=== PATIENT | female | born 1985 | race Caucasian/White ===

== ENCOUNTER → 2016-12-29 | Outpatient (REF) | payer BC ==
[~2016-12-29] MED LIST: ACET50TA PO; ASPI325T28 PO; COLA100C PO; IBUP-1114 PO; KEFL500C7 PO; PRENTAB55 PO; TYLE325T5 PO; VENL75TA2 PO
== END ==
LOC: M LAB REF 15:57
PROVIDERS: ATTEND Physician Assistant Medical
DX: N30.01 Acute cystitis with hematuria (principal)

== ENCOUNTER → 2017-06-11 | Outpatient (REF) | payer BC ==
[~2017-06-11] MED LIST changes: -COLA100C PO; +COLA100C5 PO; +KEFL500C17 PO; -KEFL500C7 PO
== END ==
LOC: M LAB REF 13:21
PROVIDERS: ATTEND Advanced Practice Midwife
DX: Z12.4 Encounter for screening for malignant neoplasm of cervix (principal); R87.612 Low grade squamous intraepithelial lesion on cytologic smear of cervix (LGSIL)

== ENCOUNTER → 2017-07-10 | Outpatient (REF) | payer BC | LOC: M LAB REF 17:27 | PROVIDERS: ATTEND Specialist | DX: N87.0 Mild cervical dysplasia (principal) ==

== ENCOUNTER → 2017-12-05 | Outpatient (REF) | payer BC ==
[2017-12-05 15:10] LABS: INFLUENZA A AMPLIFICATION NEGATIVE (NEGATIVE); INFLUENZA B AMPLIFICATION NEGATIVE (NEGATIVE)
== END ==
LOC: M LAB REF 13:50
DX: R05 Cough (principal)
CPT/HCPCS: 87502

== ENCOUNTER → 2018-01-28 | Outpatient (REF) | payer BC ==
[2018-01-31 14:19] LABS: HPV HYBRID CAPTURE II Negative (Negative)
== END ==
LOC: M LAB REF 13:24
DX: R87.612 Low grade squamous intraepithelial lesion on cytologic smear of cervix (LGSIL) (principal); Z11.51 Encounter for screening for human papillomavirus (HPV)
CPT/HCPCS: G0123

== ENCOUNTER → 2018-08-17 | Outpatient (CLI) | payer BC | LOC: M RAD 10:52 | DX: N64.4 Mastodynia (principal); N60.01 Solitary cyst of right breast | CPT/HCPCS: 76642 ==

== ENCOUNTER → 2018-08-25 | Outpatient (REF) | payer BC ==
[2018-08-25 12:39] LABS: BASO % 0.7 % (0.0-1.0); EOS # 0.1 10^3/uL (0.0-0.50); EOS % 2.9 % (0.0-3.0); HEMATOCRIT 39.1 % (36.0-47.0); HEMOGLOBIN 13.3 g/dl (12.0-15.5); IMMATURE GRANULOCYTE % 0.4 % (0-3.0); LYMPH # 1.4 10^3/uL (1.5-4.5); LYMPH % 30.3 % (24.0-44.0); MEAN CORPUSCULAR HEMOGLOBIN 30.7 pg (27.0-33.0); MEAN CORPUSCULAR VOLUME 90.3 fl (80.0-96.0); MONO # 0.3 10^3/uL (0.0-0.8); MONO % 7.4 % (0.0-5.0); NEUTROPHILS # 2.6 10^3/uL (1.8-7.7); NEUTROPHILS % 58.3 % (36.0-66.0); PLATELET COUNT, AUTOMATED 229 10^3/uL (150-450); RED BLOOD COUNT 4.33 10^6/uL (4.00-5.40); RED CELL DISTRIBUTION WIDTH 11.9 % (11.5-14.5); WHITE BLOOD COUNT 4.5 10^3/uL (4.0-10.0)
[2018-08-25 22:49] LABS: GOLD SPEC TUBE RECIEVED
[2018-08-26 00:08] LABS: ALBUMIN 4.2 GM/DL (3.2-5.2); ALBUMIN/GLOBULIN RATIO 1.35 (1.00-1.93); ALKALINE PHOSPHATASE 59 U/L (45-117); ALT/SGPT 24 U/L (12-78); ANION GAP 6 MEQ/L (8-16); AST/SGOT 15 U/L (7-37); BILIRUBIN,TOTAL 0.8 MG/DL (0.2-1.0); BLOOD UREA NITROGEN 15 MG/DL (7-18); CARBON DIOXIDE LEVEL 29 MEQ/L (21-32); CHLORIDE LEVEL 107 MEQ/L (98-107); CREATININE FOR GFR 0.67 MG/DL (0.55-1.30); FREE T4 1.09 NG/DL (0.76-1.46); GLOMERULAR FILTRATION RATE > 60.0 (>60); GLUCOSE, FASTING 93 MG/DL (70-100); POTASSIUM SERUM 4.7 MEQ/L (3.5-5.1); SODIUM LEVEL 142 MEQ/L (136-145); TOTAL 25(OH) VITAMIN D 30.6 NG/ML (30.0-100.0); TOTAL PROTEIN 7.3 GM/DL (6.4-8.2)
== END ==
LOC: M LABDRWAD 12:20
DX: Z13.29 Encounter for screening for other suspected endocrine disorder (principal); Z13.0 Encounter for screening for diseases of the blood and blood-forming organs and certain disorders involving the immune mechanism
CPT/HCPCS: 84443

== ENCOUNTER → 2019-05-19 | Outpatient (CLI) | payer BC ==
[~2019-05-19] MED LIST changes: -ACET50TA PO; +ASPI-222 PO; -ASPI325T28 PO; +MAPA500T2 PO
--- NOTE | 2019-05-19 18:41 | REP ---
ULTRASOUND RIGHT BREAST: Real-time sonographic evaluation of the right breast was performed. Comparison made with prior study of 08/17/2018. Once again at the 10 o'clock position is an oval hypoechoic nodule. It measures 1.3 x 1.0 x 1.0 cm. Prior measurements were 1.7 x 0.7 x 1.1 cm and therefore the nodule may have slightly decreased in size. 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 IMPRESSION: ACR 3 probably benign. Solid nodule again seen at 10 o'clock may have mildly decreased in size. 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 Recommend followup ultrasound in 6 months. Electronically Signed by De Flores MD 05/22/2019 06:34 P
== END ==
LOC: M RAD 11:09
PROVIDERS: ATTEND Surgery
DX: N63.13 Unspecified lump in the right breast, lower outer quadrant (principal)

== ENCOUNTER → 2019-09-07 | Outpatient (REF) | payer BC ==
[~2019-09-07] MED LIST changes: -ASPI-222 PO; +ASPI-527 PO
== END ==
LOC: M LAB REF 13:53
PROVIDERS: ATTEND Advanced Practice Midwife
DX: Z12.4 Encounter for screening for malignant neoplasm of cervix (principal)
CPT/HCPCS: 87624; G0123

== ENCOUNTER → 2019-09-08 | Outpatient (REF) | payer BC ==
[2019-09-08 13:30] LABS: BASO # 0.1 10^3/uL (0.0-0.2); BASO % 1.1 % (0.0-1.0); EOS # 0.1 10^3/uL (0.0-0.5); EOS % 2.9 % (0.0-3.0); HEMATOCRIT 42.3 % (36.0-47.0); HEMOGLOBIN 13.9 g/dl (12.0-15.5); LYMPH # 1.4 10^3/uL (1.5-5.0); LYMPH % 30.7 % (24.0-44.0); MEAN CORPUSCULAR HEMOGLOBIN 30.7 pg (27.0-33.0); MEAN CORPUSCULAR HGB CONC 32.9 g/dl (32.0-36.5); MEAN CORPUSCULAR VOLUME 93.4 fl (80.0-96.0); MONO # 0.5 10^3/uL (0.0-0.8); NEUTROPHILS # 2.5 10^3/uL (1.5-8.5); NEUTROPHILS % 54.6 % (36.0-66.0); PLATELET COUNT, AUTOMATED 216 10^3/uL (150-450); RED BLOOD COUNT 4.53 10^6/uL (4.00-5.40); WHITE BLOOD COUNT 4.5 10^3/uL (4.0-10.0)
[2019-09-08 14:02] LABS: ALBUMIN 4.1 GM/DL (3.2-5.2); ALT/SGPT 26 U/L (12-78); BILIRUBIN,TOTAL 0.6 MG/DL (0.2-1.0); BLOOD UREA NITROGEN 14 MG/DL (7-18); CALCIUM LEVEL 9.1 MG/DL (8.5-10.1); CARBON DIOXIDE LEVEL 26 MEQ/L (21-32); CHLORIDE LEVEL 107 MEQ/L (98-107); CREATININE FOR GFR 0.67 MG/DL (0.55-1.30); FERRITIN 64 NG/ML (8-252); FREE T4 1.09 NG/DL (0.76-1.46); GLOMERULAR FILTRATION RATE > 60.0 (>60); GLUCOSE, FASTING 89 MG/DL (70-100); IRON (FE) 108 UG/DL (50-170); PERCENT SATURATION 42.7 % (13.2-45.0); POTASSIUM SERUM 4.7 MEQ/L (3.5-5.1); SODIUM LEVEL 138 MEQ/L (136-145); TOTAL 25(OH) VITAMIN D 25.7 NG/ML (30.0-100.0); TOTAL IRON BINDING CAPACITY 253 UG/DL (250-450); TOTAL PROTEIN 7.5 GM/DL (6.4-8.2); VITAMIN B12 LEVEL 399 PG/ML (247-911)
== END ==
LOC: M LABDRWAD 12:44
PROVIDERS: ATTEND Family Medicine
DX: R53.83 Other fatigue (principal); Z13.29 Encounter for screening for other suspected endocrine disorder; Z13.0 Encounter for screening for diseases of the blood and blood-forming organs and certain disorders involving the immune mechanism

== ENCOUNTER → 2019-11-30 | Outpatient (CLI) | payer BC ==
--- NOTE | 2019-11-30 14:37 | REP ---
ULTRASOUND RIGHT BREAST: Real-time sonographic evaluation of the right breast performed. Comparison is made with a prior study of 05/19/2019 and 08/17/2018. There is a palpable lump in the right breast in the region of 10-o'clock position. At the site of the palpable lump, there is an oval mildly lobulated hypoechoic solid-appearing nodule which measures 2.0 x 1.1 x 1.1 cm. On the prior study of 08/17/2018, it measured 1.7 x 0.7 x 1.1 cm. Therefore, it appears to have slightly increased in size. No other abnormality is seen in this region. There is dense fibroglandular tissue in the adjacent breast. IMPRESSION: Oval solid nodule 10-o'clock position right breast has slightly increased in size since the prior study of 08/17/2018. The increased in diameter is about 3-4 mm. ACR 3 probably benign. 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 Recommend followup ultrasound in 6 months. Electronically Signed by De Flores MD 12/01/2019 01:43 P
== END ==
LOC: M RAD 12:48
PROVIDERS: ATTEND Surgery
DX: N63.13 Unspecified lump in the right breast, lower outer quadrant (principal)

== ENCOUNTER → 2020-10-13 | Outpatient (CLI) | payer BC ==
--- NOTE | 2020-10-13 10:56 | REP ---
INDICATION: RIGHT BREAST LUMP. COMPARISON: Comparison targeted right breast sonography May 19, 2019, and August 17, 2018.. TECHNIQUE: Targeted right breast sonography is carried out about the 10 o'clock position. FINDINGS: Scaling again demonstrates heterogeneous fibroglandular background echotexture. An oval-shaped hypoechoic solid mass lesion is again observed in the 10 o'clock position 6.7 cm from the nipple. Today's measurements are 2.2 x 0.9 x 1.1 cm. Most recently this was measured at 2.0 x 1.1 by 1.1 there is enhanced through transmission and well-defined back wall but the lesion appears solid. Its long axis is parallel to the skin. It is compatible with fibroadenoma. On the 2018 prior study, 2 years ago, lesions dimensions were 17 x 11 by 7 mm.. IMPRESSION: 2.2 cm hypoechoic solid lesion 10 o'clock position right breast persists unchanged from most recent prior study and a little larger than it was 2 years ago in August 17, 2018. This is most compatible with a fibroadenoma, although not specific.. <Electronically signed by Kevin Vallejo > 10/13/20 [id number]
== END ==
LOC: M RAD 09:55
PROVIDERS: ATTEND Surgery
DX: D24.1 Benign neoplasm of right breast (principal)

== ENCOUNTER → 2022-04-12 | Outpatient (CLI) | payer OTHER | LOC: M WHC 13:15 | PROVIDERS: ATTEND Surgery | DX: D24.1 Benign neoplasm of right breast (principal) ==

== ENCOUNTER → 2023-01-07 | Outpatient (CLI) | payer OTHER ==
[2023-01-07 13:40] LABS: BASO % 0.9 % (0.0-1.0); EOS # 0.2 10^3/uL (0.0-0.5); EOS % 3.7 % (0.0-3.0); HEMATOCRIT 40.2 % (36.0-47.0); HEMOGLOBIN 13.2 g/dl (12.0-15.5); LYMPH # 1.3 10^3/uL (1.5-5.0); LYMPH % 27.3 % (24.0-44.0); MEAN CORPUSCULAR HEMOGLOBIN 30.6 pg (27.0-33.0); MEAN CORPUSCULAR HGB CONC 32.8 g/dl (32.0-36.5); MEAN CORPUSCULAR VOLUME 93.1 fl (80.0-96.0); MONO # 0.6 10^3/uL (0.0-0.8); MONO % 11.8 % (2.0-8.0); NEUTROPHILS # 2.6 10^3/uL (1.5-8.5); NEUTROPHILS % 55.7 % (36.0-66.0); PLATELET COUNT, AUTOMATED 280 10^3/uL (150-450); RED BLOOD COUNT 4.32 10^6/uL (4.00-5.40); WHITE BLOOD COUNT 4.7 10^3/uL (4.0-10.0)
[2023-01-07 14:09] LABS: IRON (FE) 96 UG/DL (50-170)
[2023-01-07 14:10] LABS: PERCENT SATURATION 34.7 % (13.2-45.0); TOTAL IRON BINDING CAPACITY 277 UG/DL (250-425)
[2023-01-07 14:14] LABS: ALBUMIN 4.2 G/DL (3.2-5.2); ALKALINE PHOSPHATASE 49 U/L (46-116); ALT/SGPT 24 U/L (7.0-40); AST/SGOT 20 U/L (<34); BILIRUBIN,TOTAL 0.7 MG/DL (0.3-1.2); BLOOD UREA NITROGEN 11 MG/DL (9-23); CALCIUM LEVEL 9.3 MG/DL (8.5-10.1); CARBON DIOXIDE LEVEL 28 MMOL/L (20-31); CHLORIDE LEVEL 103 MMOL/L (98-107); CREATININE FOR GFR 0.68 MG/DL (0.55-1.30); FOLATE > 24.0 NG/ML (>5.4); GLOMERULAR FILTRATION RATE > 60.0 (>60); GLUCOSE, FASTING 88 MG/DL (60-100); POTASSIUM SERUM 4.7 MMOL/L (3.5-5.1); SODIUM LEVEL 138 MMOL/L (136-145); THYROID STIMULATING HORMONE 1.788 uIU/ML (0.55-4.78); TOTAL 25(OH) VITAMIN D 30.4 NG/ML (20.0-100.0); TOTAL PROTEIN 7.4 G/DL (5.7-8.2)
[2023-01-07 14:16] LABS: VITAMIN B12 LEVEL 453 PG/ML (211-911)
== END ==
LOC: M LABDRWAD 10:21
PROVIDERS: ATTEND Nurse Practitioner Adult Health
DX: R53.83 Other fatigue (principal)

== ENCOUNTER → 2023-10-15 | Outpatient (CLI) | payer OTHER ==
[2023-10-15 16:09] LABS: BASO % 0.5 % (0.0-1.0); EOS # 0.1 10^3/uL (0.0-0.5); HEMATOCRIT 39.8 % (36.0-47.0); HEMOGLOBIN 13.4 g/dl (12.0-15.5); LYMPH # 1.4 10^3/uL (1.5-5.0); LYMPH % 25.5 % (24.0-44.0); MEAN CORPUSCULAR HEMOGLOBIN 30.7 pg (27.0-33.0); MEAN CORPUSCULAR HGB CONC 33.7 g/dl (32.0-36.5); MEAN CORPUSCULAR VOLUME 91.3 fl (80.0-96.0); MONO # 0.5 10^3/uL (0.0-0.8); MONO % 8.5 % (2.0-8.0); NEUTROPHILS # 3.5 10^3/uL (1.5-8.5); PLATELET COUNT, AUTOMATED 283 10^3/uL (150-450); RED BLOOD COUNT 4.36 10^6/uL (4.00-5.40); WHITE BLOOD COUNT 5.5 10^3/uL (4.0-10.0)
[2023-10-15 16:22] LABS: ERYTHROCYTE SEDIMENTATION RATE 15 mm/hr (0-20)
[2023-10-15 16:35] LABS: C REACTIVE PROTEIN QUANTITATIV < 0.40 MG/DL (<1.0)
[2023-10-15 16:36] LABS: FOLATE > 24.0 NG/ML (>5.4); IRON (FE) 160 UG/DL (50-170); TOTAL IRON BINDING CAPACITY 258 UG/DL (250-425)
[2023-10-15 16:37] LABS: TOTAL 25(OH) VITAMIN D 34.8 NG/ML (20.0-100.0); VITAMIN B12 LEVEL 588 PG/ML (211-911)
[2023-10-15 16:38] LABS: FERRITIN 72.6 NG/ML (7.3-270.7); THYROID STIMULATING HORMONE 2.071 uIU/ML (0.55-4.78)
[2023-10-15 16:39] LABS: FREE T4 1.22 NG/DL (0.89-1.76)
[2023-10-17 23:07] LABS: ANA (HEP2) Negative (.)
== END ==
LOC: M PLALAB 12:15
PROVIDERS: ATTEND Nurse Practitioner Adult Health
DX: M79.10 Myalgia, unspecified site (principal); E55.9 Vitamin D deficiency, unspecified; R53.83 Other fatigue

== ENCOUNTER → 2024-06-01 | Outpatient (CLI) | payer OTHER | LOC: M WHC 11:04 | PROVIDERS: ATTEND Nurse Practitioner Adult Health | DX: D48.61 Neoplasm of uncertain behavior of right breast (principal) | CPT/HCPCS: 76642; 77066; G0279 ==